=== PATIENT | female | born 1935 | race Caucasian/White ===

== ENCOUNTER 2017-10-29 14:04 | Inpatient (IN) | payer OTHER ==
[~2017-10-29] VITALS: Ht 154.9 cm; Wt 60.8 kg
[~2017-10-29 14:04] MED LIST: ACCOLATE10 MG PO; ALPRAZOLAM0.25 M2 PO; CELEBREX100 MG PO; DONEPEZIL HCL10 MG PO; MEMANTINE HCL5 MG PO; TIROSINT50 MCG PO
[2017-10-29 14:44] LABS: HEMATOCRIT 34.8 % (36.0-46.0); HEMOGLOBIN 11.4 G/DL (11.9-15.5); MCH 31.4 PG (29.0-34.0); MCHC 32.8 G/DL (30.0-36.0); MCV 95.9 FL (83-99); PLATELET COUNT 225 K/uL (156-360); RBC DIS.WIDTH-CV 15.1 % (11.8-14.6); RBC DIS.WIDTH-SD 53.1 % (39-53); RED BLOOD COUNT 3.63 M/uL (3.80-5.20); WHITE BLOOD COUNT 9.2 K/uL (4.1-10.2)
[2017-10-29 15:01] LABS: CHLORIDE 107 mEq/L (99-109); POTASSIUM 4.7 mEq/L (3.7-5.4); SODIUM 143 mEq/L (136-147)
[2017-10-29 15:03] LABS: GLUCOSE 108 mg/dL (70-99)
[2017-10-29 15:07] LABS: CREATININE 1.4 mg/dL (0.6-1.3); GFR ESTIMATE (CALCULATED) 38 mL/min/; UREA NITROGEN (BUN) 14 mg/dL (9-23)
[2017-10-29 15:52] LABS: APPEARANCE SL.HAZY ((CLEAR)); BILIRUBIN NEGATIVE; BLOOD SMALL; COLOR YELLOW ((YELLOW)); GLUCOSE (STRIP) NEGATIVE; KETONES NEGATIVE; LEUKOCYTES MODERATE; NITRITE NEGATIVE; PROTEIN (STRIP) NEGATIVE; SPECIFIC GRAVITY 1.006 (1.000-1.030); UROBILINOGEN 0.2 MG/DL (0.2-1.0)
[2017-10-29 16:01] LABS: BACTERIA 3+ /HPF; CALCIUM OXALATE CRYSTALS 3+ /HPF; EPITHELIAL CELLS RARE /HPF; MUCUS TRACE /LPF; UCUL ADDED? YES; WHITE BLOOD CELLS 0-5 /HPF (0-5)
[2017-10-29 16:33] LABS: TROP-I INTERPRETATION NEGATIVE; TROPONIN-I < 0.01 ng/mL (0.0-0.30)
[2017-10-29] MEDS ORDERED: MACROBID100 MG PO (17:45)
[2017-10-29] MEDS ORDERED: ATIVAN0.5 MG PO (17:50)
[2017-10-29] MEDS ORDERED: SEROQUEL12.5 MG PO ×3 (17:51→17:52)
[2017-10-29] MEDS ORDERED: TRAZODONE HCL50 MG PO (17:51)
[2017-10-29] MEDS ORDERED: COZAAR100 MG PO (17:57)
[2017-10-29] MEDS ORDERED: VITAMIN D31000 UNIT PO (17:58)
[2017-10-29] MEDS ORDERED: ALENDRONATE SOD35 MG PO (17:58)
[2017-10-29] MEDS ORDERED: SYMBICORT60 INHALA1 IH (17:58)
[2017-10-29 21:02] VITALS: BP 178/80
[2017-10-29 23:34] VITALS: BP 193/83
[2017-10-30 05:29] LABS: BASOPHIL (%) 0.4 % (0-1); EOSINOPHIL (%) 0 % (0-5); HEMATOCRIT 37.7 % (36.0-46.0); IMMATURE GRANULOCYTE (%) 0.2 % (0.0-0.7); LYMPHOCYTE (%) 42.2 % (15-42); LYMPHOCYTE COUNT 3.9 K/uL (1.0-2.8); MCHC 31.8 G/DL (30.0-36.0); MCV 94.3 FL (83-99); MONOCYTE (%) 7.6 % (3-12); MONOCYTE COUNT 0.7 K/uL (0-0.8); NEUTROPHIL (%) 49.6 % (45-76); NEUTROPHIL COUNT 4.5 K/uL (1.8-6.4); RBC DIS.WIDTH-CV 15.2 % (11.8-14.6); RBC DIS.WIDTH-SD 52.9 % (39-53); WHITE BLOOD COUNT 9.2 K/uL (4.1-10.2)
[2017-10-30 05:39] LABS: PLATELET COUNT 299 K/uL (156-360)
[2017-10-30 05:40] LABS: ALBUMIN 3.7 G/DL (3.2-4.8); ALKALINE PHOSPHATASE 64 IU/L (3-129); ALT (GPT) 8 IU/L (3-49); AST (GOT) 14 IU/L (2-34); CHLORIDE 105 MEQ/L (99-109); CREATININE 1.3 MG/DL (0.6-1.3); DIRECT BILIRUBIN 0.1 mg/dL (0.0-0.3); GFR ESTIMATE (CALCULATED) 42 mL/min/; GLUCOSE 96 mg/dL (70-99); POTASSIUM 3.8 MEQ/L (3.7-5.4); SODIUM 141 MEQ/L (136-147); TOTAL BILIRUBIN 0.5 MG/DL (0.0-1.0); TOTAL PROTEIN 6.7 G/DL (6.4-8.3); UREA NITROGEN (BUN) 13 mg/dL (9-23)
[2017-10-30 05:57] VITALS: BP 156/71
[2017-10-30 07:40] VITALS: BP 143/67
[2017-10-30 11:49] VITALS: BP 140/68
[2017-10-30 15:28] VITALS: BP 152/77
[2017-10-30 16:01] VITALS: BP 181/71
[2017-10-31 03:34] VITALS: BP 196/91
[2017-10-31 05:53] LABS: CHLORIDE 108 MEQ/L (99-109); CREATININE 1.3 MG/DL (0.6-1.3); GFR ESTIMATE (CALCULATED) 42 mL/min/; GLUCOSE 84 mg/dL (70-99); POTASSIUM 4.4 MEQ/L (3.7-5.4); SODIUM 140 MEQ/L (136-147); UREA NITROGEN (BUN) 9 mg/dL (9-23)
[2017-10-31 07:55] VITALS: BP 190/85
[2017-10-31 12:02] VITALS: BP 166/86
== END 2017-10-31 14:33 | disposition home or self-care (01) | DRG 312 ==
LOC: EME 14:04 → EDOF 19:46 → 4SOUTH 19:46 → ENRESERV 19:49 → 4SOUTH 20:53
PROVIDERS: Emergency Medicine; Hospitalist; Physician Assistant
DX: R55 Syncope and collapse (principal); N17.9 Acute kidney failure, unspecified; N39.0 Urinary tract infection, site not specified; F05 Delirium due to known physiological condition; F02.81 Dementia in other diseases classified elsewhere, unspecified severity, with behavioral disturbance; E03.9 Hypothyroidism, unspecified; E86.0 Dehydration; G30.9 Alzheimer's disease, unspecified; I10 Essential (primary) hypertension; M19.90 Unspecified osteoarthritis, unspecified site; I95.89 Other hypotension; I00 Rheumatic fever without heart involvement; R45.1 Restlessness and agitation; R61 Generalized hyperhidrosis; Z85.3 Personal history of malignant neoplasm of breast; Z88.5 Allergy status to narcotic agent; Z88.1 Allergy status to other antibiotic agents; Z80.1 Family history of malignant neoplasm of trachea, bronchus and lung; Z82.5 Family history of asthma and other chronic lower respiratory diseases
CPT/HCPCS: 71046; 80048; 80076; 81003; 84484; 85025; 85027; 93005; 94640; 99281; 99285; G0378; G8987 GO CI; G8988 GO CH; G8989 GO CI; J0360; J1644; J7030